=== PATIENT | male | born 1975 | race Caucasian/White ===

== ENCOUNTER 2017-04-07 08:35 | Outpatient (CLI) | payer OTHER | END 2017-04-07 08:36 | disposition home or self-care (01) | LOC: RT 08:35 | PROVIDERS: ATTEND General Practice | DX: R05 Cough (principal) | CPT/HCPCS: 94010 ==

== ENCOUNTER 2018-06-22 09:14 | Outpatient (CLI) | payer OTHER | END 2018-06-22 09:15 | disposition home or self-care (01) | LOC: SC 09:14 | PROVIDERS: ATTEND Internal Medicine Pulmonary Disease | DX: G47.33 Obstructive sleep apnea (adult) (pediatric) (principal) | CPT/HCPCS: 99203; 99212 ==

== ENCOUNTER 2018-12-22 17:02 | Emergency (ER) | payer OTHER ==
[2018-12-22 17:07] VITALS: BP 130/65
--- NOTE | 2018-12-22 17:18 | ED Physician Documentation ---
PD HPI UPPER EXT INJURY - Stated complaint Stated Complaint: LT WRIST INJ - Chief complaint Chief Complaint: Ext Problem - History obtained from History obtained from: Patient - History of Present Illness Location: Left, Forearm Type of injury: Fall Where injury occurred: Home Timing - onset: How many days ago (3) Timing - duration: Days (3) Timing - details: Abrupt onset, Still present Improved by: Rest, Immobilization Worsened by: Moving, Palpating Associated symptoms: Swelling. No: Weakness, Numbness, Tingling Contributing factors: No: Anticoagulated Similar symptoms before: Has not had sx before Recently seen: Not recently seen - Additonal information Additional information: 43-year-old male was replaced in the brakes on his truck when he was using a large tear bar in the vault gave way he fell onto an outstretched left hand. He complains of pain in the distal left radius and is able to have good range of motion of the wrist itself he has some improvement in the pain with immobilization with a Velcro splint. Review of Systems Constitutional: denies: Fever Ears: denies: Ear pain Nose: denies: Congestion Respiratory: denies: Cough GI: denies: Vomiting : denies: Dysuria Skin: denies: Rash Musculoskeletal: reports: Extremity pain, Joint pain. denies: Neck pain, Back pain Neurologic: denies: Generalized weakness, Focal weakness, Numbness PD PAST MEDICAL HISTORY - Past Medical History GI: GERD - Past Surgical History Past Surgical History: Yes - Present Medications Home Medications: Ambulatory Orders Medication Instructions Recorded Confirmed Montelukast [Singulair] 10 mg PO QPM 12/22/18 12/22/18 Sertraline [Zoloft] 25 mg PO DAILY 12/22/18 12/22/18 - Allergies Allergies/Adverse Reactions: Allergies Allergy/AdvReac Type Severity Reaction Status Date / Time No Known Drug Allergies Allergy Verified 12/22/18 17:07 - Social History Does the pt smoke?: No Smoking Status: Never smoker Does the pt drink ETOH?: Yes Does the pt have substance abuse?: No - Immunizations Immunizations are current?: Yes PD ED PE NORMAL - Vitals Vital signs reviewed: Yes (normal ) - General General: Alert and oriented X 3, No acute distress, Well developed/nourished - HEENT HEENT: Atraumatic, PERRL, EOMI - Respiratory Respiratory: No respiratory distress - Derm Derm: Normal color, Warm and dry, No rash - Extremities Extremities: No deformity, No edema, Other (There is no tenderness over the anatomic snuff box and the wrist is with full ROM without restriction. There is tenderness and swelling to the distal forearm over the distal 1/3 of the radias. distal n/v is intact. ) - Neuro Neuro: Alert and oriented X 3, manager of pmo 2-12 intact, No motor deficit, No sensory deficit, Normal speech Eye Opening: Spontaneous Motor: Obeys Commands Verbal: Oriented GCS Score: 15 - Psych Psych: Normal mood, Normal affect Results - Vitals Vitals: Vital Signs - 24 hr 12/22/18 17:05 Temperature 36.4 C L Heart Rate 61 Respiratory 18 Rate Blood Pressure 130/65 O2 Saturation 100 Oxygen O2 Source Room air - Rads (name of study) forearm left Radiology: Prelim report reviewed (Impression: Negative forearm radiography), EMP read indepedently, See rad report Procedures - Splint (location) wrist left Splint applied by: Tech Type of splint: Fiberglass, Volar cock up Other: Patient tolerated well, No complications, Neurovascular intact, Good alignment PD MEDICAL DECISION MAKING - ED course Complexity details: reviewed results, re-evaluated patient, considered differential, d/w patient ED course: 43 y/o male with a forearm injury from a FOOSH is placed into a volar splint. Departure - Departure Disposition: 01 Home, Self Care Clinical Impression: Left wrist sprain Qualifiers: Encounter type: initial encounter Qualified Code(s): S63.502A - Unspecified sprain of left wrist, initial encounter Condition: Stable Instructions: ED Sprain Wrist Follow-Up: GINGER SHEETS [Primary Care Provider] - Discharge Date/Time: 12/22/18 17:44
--- NOTE | 2018-12-22 17:40 | XRAY Report ---
Reason: FOOSH with distal 1/3 radius pain Procedure Date: 12/22/2018 Accession Number: [id number] / [id number] Procedure: XR - Forearm LT CPT Code: FULL RESULT: EXAM: LEFT FOREARM RADIOGRAPHY EXAM DATE: 12/22/2018 05:30 PM. CLINICAL HISTORY: FOOSH with distal 1/3 radius pain. COMPARISON: None. TECHNIQUE: 2 views. FINDINGS: Bones: Normal. No fractures or bone lesions. Joints: Normal. No effusions or subluxations in the visualized wrist or elbow joints. Soft Tissues: Normal. No soft tissue swelling. IMPRESSION: Negative forearm radiography. RADIA
== END 2018-12-22 17:44 | disposition home or self-care (01) ==
LOC: ED 17:02
DX: S63.502A Unspecified sprain of left wrist, initial encounter (principal); W18.30XA Fall on same level, unspecified, initial encounter
CPT/HCPCS: 29125; 99282

== ENCOUNTER 2019-02-07 16:49 | Emergency (ER) | payer OTHER ==
--- NOTE | 2019-02-07 17:16 | ED Physician Documentation ---
PD HPI UPPER EXT INJURY - Stated complaint Stated Complaint: RT SHOULDER PX - Chief complaint Chief Complaint: Ext Problem - History obtained from History obtained from: Patient - History of Present Illness Location: Right, Shoulder, Other (anterior chest) Type of injury: Blunt / blow (he was drilling with power tool and pushed hard on the tool, using his chest to press in. The rear of the drill was against chest wall. Patient felt a pop and has had pain at right anterior chest wall, below medial clavicle area focally. No further popping nor clicking.) Where injury occurred: Home Timing - onset: How many days ago (several) Timing - duration: Days (several) Timing - details: Abrupt onset, Still present, Waxing and waning Improved by: Rest Worsened by: Moving (right shoulder movement hurts at the pectoral/anterior chest area.), Palpating Associated symptoms: No: Weakness, Numbness, Swelling Similar symptoms before: Has not had sx before Recently seen: Not recently seen Review of Systems Throat: denies: Sore throat Cardiac: denies: Palpitations Respiratory: denies: Dyspnea, Cough GI: denies: Abdominal Pain, Nausea, Vomiting Skin: denies: Rash, Lesions PD PAST MEDICAL HISTORY - Past Medical History Cardiovascular: None Respiratory: None Neuro: None Endocrine/Autoimmune: None GI: GERD HEENT: Other (allergies) - Past Surgical History Past Surgical History: Yes - Present Medications Home Medications: Ambulatory Orders Medication Instructions Recorded Confirmed Montelukast [Singulair] 10 mg PO QPM 12/22/18 12/22/18 Sertraline [Zoloft] 25 mg PO DAILY 12/22/18 12/22/18 Hydrocodone/Acetaminophen [[place] 1 each PO Q6H PRN #20 tablet 02/07/19 5-325 Tablet] - Allergies Allergies/Adverse Reactions: Allergies Allergy/AdvReac Type Severity Reaction Status Date / Time No Known Drug Allergies Allergy Verified 02/07/19 16:52 - Social History Does the pt smoke?: No Smoking Status: Never smoker Does the pt drink ETOH?: Yes Does the pt have substance abuse?: No - Immunizations Immunizations are current?: Yes PD ED PE NORMAL - Vitals Vital signs reviewed: Yes - General General: Alert and oriented X 3, No acute distress, Well developed/nourished - Neck Neck: Supple, no meningeal sign, No adenopathy - Cardiac Cardiac: RRR, No murmur - Respiratory Respiratory: Clear bilaterally, Other (local chestwall tenderness at right lateral chest costchondral junction at level of 3rd/4th rib, without crepitance. ) Results - Vitals Vitals: Oxygen O2 Source Room air - Rads (name of study) right shoulder Radiology: Prelim report reviewed, EMP read contemporaneously (shoulder film done via nursing triage. It does show the anterior ribs and upper lung field for that area adequately to see no gross deformity. ), See rad report PD MEDICAL DECISION MAKING - ED course Complexity details: reviewed results, considered differential, d/w patient Departure - Departure Disposition: Home, Self Care Clinical Impression: Costochondral joint sprain Qualifiers: Encounter type: initial encounter Qualified Code(s): S23.41XA - Sprain of ribs, initial encounter Condition: Stable Record reviewed to determine appropriate education?: Yes Instructions: ED Chest Pain Costochondritis Follow-Up: [facility] SHE[facility] [Primary Care Provider] - Prescriptions: Hydrocodone/Acetaminophen [[place] 5-325 Tablet] 1 each PO Q6H PRN #20 tablet PRN Reason: Pain Comments: The x-ray appears normal in that area so no obvious rib fractures. There could be a small hairline fracture though in that location be more likely a inflammation or slight separation of the cartilage junction between the rib and the sternum. Continue some anti-inflammatories such as ibuprofen or naproxen 2- 3 times daily. Add Tylenol or hydrocodone if needed for pain. I would an ticipate steady improvement over a week to 2 weeks at most. Discharge Date/Time: 02/07/19 18:17
--- NOTE | 2019-02-07 17:56 | XRAY Report ---
Reason: R shoulder inj Procedure Date: 02/07/2019 Accession Number: [id number] / [id number] Procedure: XR - Shoulder 3 View RT CPT Code: FULL RESULT: EXAM: RIGHT SHOULDER RADIOGRAPHY EXAM DATE: 02/07/2019 05:35 PM. CLINICAL HISTORY: Right shoulder injury. Pain just to the right of sternum approximately a third or fourth rib sharp stabbing pain with cough. COMPARISON: None. TECHNIQUE: 3 views. FINDINGS: Bones: Normal. No fracture or bone lesion. Joints: Mild acromioclavicular degenerative joint disease with osteophytes. No subluxation. Soft tissues: The visualized hemithorax is unremarkable. No soft tissue swelling. IMPRESSION: Mild acromioclavicular degenerative joint disease. No acute fracture or dislocation. RADIA
[2019-02-07] MEDS ORDERED: HYDROcod/ACETAM 5/325 MG TABLET PO STA (18:06)
[2019-02-07 18:13] VITALS: BP 119/77
== END 2019-02-07 18:17 | disposition home or self-care (01) ==
LOC: ED 16:49
DX: S23.41XA Sprain of ribs, initial encounter (principal); M25.511 Pain in right shoulder; X50.9XXA Other and unspecified overexertion or strenuous movements or postures, initial encounter; W29.8XXA Contact with other powered hand tools and household machinery, initial encounter; Y93.89 Activity, other specified; Y92.009 Unspecified place in unspecified non-institutional (private) residence as the place of occurrence of the external cause
CPT/HCPCS: 73030; 99283; A9270

== ENCOUNTER 2019-03-02 00:05 | Emergency (ER) | payer OTHER ==
--- NOTE | 2019-03-02 00:36 | ED Physician Documentation ---
PD HPI SYNCOPE - Stated complaint Stated Complaint: SYNCOPE/NOSE PX - Chief complaint Chief Complaint: Neuro - History obtained from History obtained from: Patient - History of Present Illness Witnessed: Unwitnessed Timing - onset: Today Duration: Unknown Preceding symptoms: Diaphoresis, Light headed. No: Nausea / vomiting Associated symptoms: Diaphoresis. No: Incontinant of urine, Incontinant of stool, Headache, Palpitations, Nausea / vomiting Contributing factors: Other (Is having some abdominal discomfort because he needed to have a bowel movement. He had some mild diarrhea.) Injury occurred: Fell. No: Bit tongue Similar symptoms before: Diagnosis (Vasovagal syncope) Recently seen: Not recently seen - Additional information Additional information: Is a 43-year-old man who presents with his complaints that he got up at night feeling like he needed to go to the bathroom. He did eaten a pizza that he thinks was not settling well. As soon as he sat down on the toilet he started to get lightheaded and really sweaty and next thing he knew he woke up on his right side on the floor in front of the toilet. He thought he had vomited he got up and looked at turn on the light and realized that it was a puddle of blood. He still needed to have a bowel movement so he sat on the toilet had some diarrhea and then woke his up. He does not know how long he was out in the bathroom but there was quite a puddle of blood and it was kind of congealed by the time the got in there so he thinks he may have been out a couple of minutes. He is complaining that his nose hurts. The bleeding was definitely coming from inside the nose he was spitting it out of his mouth. He is also complaining of neck pain to the right side. Does not have a headache or feel dizzy now. He had no vomiting. No bowel or bladder incontinence. He says that he had a very busy day to day and is very active and probably did not drink enough water. He does have a history of passing out in the past at least 2 other times. 1 of those times he was diagnosed with vasovagal syncope. 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 Review of Systems Constitutional: denies: Fever Cardiac: denies: Chest pain / pressure, Palpitations, Pedal edema Respiratory: denies: Dyspnea, Cough GI: reports: Diarrhea. denies: Abdominal Pain, Nausea, Vomiting : denies: Dysuria, Frequency Skin: denies: Rash Musculoskeletal: reports: Neck pain. denies: Back pain, Extremity pain, Joint pain Neurologic: reports: Syncope. denies: Generalized weakness, Focal weakness, Numbness, Difficulty speaking, Seizure, Confused, Altered mental status, Headache Endocrine: reports: Other (He is not diabetic.) PD PAST MEDICAL HISTORY - Past Medical History Cardiovascular: None Respiratory: None Neuro: Fainting Endocrine/Autoimmune: None GI: GERD : None HEENT: Other (allergies) Psych: Anxiety Musculoskeletal: None Derm: None - Past Surgical History Past Surgical History: Yes - Present Medications Home Medications: Ambulatory Orders Medication Instructions Recorded Confirmed Montelukast [Singulair] 10 mg PO QPM 12/22/18 03/02/19 Sertraline [Zoloft] 25 mg PO DAILY 12/22/18 03/02/19 - Allergies Allergies/Adverse Reactions: Allergies Allergy/AdvReac Type Severity Reaction Status Date / Time No Known Drug Allergies Allergy Verified 03/02/19 00:14 - Social History Does the pt smoke?: No Smoking Status: Never smoker Does the pt drink ETOH?: Yes Does the pt have substance abuse?: No - Immunizations Immunizations are current?: Yes - POLST Patient has POLST: No PD ED PE NORMAL - Vitals Vital signs reviewed: Yes (Thin pleasant 43-year-old man.) - General General: Alert and oriented X 3, No acute distress, Well developed/nourished - HEENT HEENT: PERRL, EOMI, Ears normal, Moist mucous membranes, Other (There is a small less than half centimeter laceration to the right side of the nose where his glasses sit. The nose is quite swollen and tender across the bridge of it. There is dried blood in the nostrils but no septal hematoma. No blood in the posterior pharynx. There is a small abrasion to the left side of his tongue. Pupils are equal round reactive to light and extraocular muscles are intact. There is no hemotympanum.) - Neck Neck: Other (He does have pain with palpation to the right of the cervical midline about C4.) - Cardiac Cardiac: RRR, No murmur - Respiratory Respiratory: No respiratory distress, Clear bilaterally - Abdomen Abdomen: Normal bowel sounds, Soft, Non tender, Non distended, No organomegaly - Derm Derm: Normal color, Warm and dry, Other (Small laceration to the bridge of the nose as noted above.) - Extremities Extremities: No deformity, Normal ROM s pain, No edema - Neuro Neuro: Alert and oriented X 3, shake cutter 2-12 intact, No motor deficit, No sensory deficit, Normal speech Eye Opening: Spontaneous Motor: Obeys Commands Verbal: Oriented GCS Score: 15 - Psych Psych: Normal mood, Normal affect Results - Vitals Vitals: Vital Signs - 24 hr 03/02/19 03/02/19 00:11 01:35 Temperature 36.4 C L Heart Rate 62 67 Respiratory 15 16 Rate Blood Pressure 121/81 H 138/81 H O2 Saturation 97 97 Oxygen O2 Source Room air - EKG (time done) 0019 Rate: Rate (enter#) Rhythm: Sinus bradycardia Intervals: Prolonged LA. No: Prolonged QT, Wide QRS QRS: Normal Compare to prior EKG: Old EKG unavailable - Labs Labs: Laboratory Tests 03/02/19 03/02/19 03/02/19 00:42 00:47 00:47 WBC 7.5 RBC 4.38 L Hgb 13.4 L Hct 38.5 L MCV 87.9 MCH 30.6 MCHC 34.8 RDW 13.0 Plt Count 228 MPV 7.1 L Neut # (Auto) 4.3 Lymph # (Auto) 2.3 Leon # (Auto) 0.6 Eos # (Auto) 0.4 Baso # (Auto) 0.0 Absolute Nucleated RBC 0.01 Nucleated RBC % 0.1 Sodium 141 Potassium 3.5 Chloride 104 Carbon Dioxide 26 Anion Gap 11.0 BUN 18 Creatinine 0.8 Estimated GFR (MDRD) 106 Glucose 92 POC Whole Bld Glucose 88 Calcium 8.7 Total Bilirubin 1.1 H AST 32 ALT 20 Alkaline Phosphatase 62 Troponin I Total Protein 6.6 L Albumin 3.9 Globulin 2.7 Albumin/Globulin Ratio 1.4 Lipase 38 Ethyl Alcohol < 5.0 03/02/19 00:47 WBC RBC Hgb Hct MCV MCH MCHC RDW Plt Count MPV Neut # (Auto) Lymph # (Auto) Leon # (Auto) Eos # (Auto) Baso # (Auto) Absolute Nucleated RBC Nucleated RBC % Sodium Potassium Chloride Carbon Dioxide Anion Gap BUN Creatinine Estimated GFR (MDRD) Glucose POC Whole Bld Glucose Calcium Total Bilirubin AST ALT Alkaline Phosphatase Troponin I < 0.04 Total Protein Albumin Globulin Albumin/Globulin Ratio Lipase Ethyl Alcohol PD MEDICAL DECISION MAKING - ED course Complexity details: d/w patient, d/w family ED course: Patient's EKG was a sinus rhythm without ischemic changes or dysrhythmia. The cervical spine CT showed some spondylosis at C5-6 but no fracture. He was slightly anemic but not significant enough to cause syncope. His chemistries were normal. Did not image his nose. Clinically he has a fracture and I felt that imaging would be of limited value. He was comfortable with that. There is no septal hematoma. The laceration on the bridge of his nose is very small and not anything that needs sutured. Patient does wear a CPAP machine and we discussed that that may be difficult for him for the next couple of days. Referred him back to his primary care provider for follow-up and further evaluation as they feel is warranted. Departure - Departure Disposition: 01 Home, Self Care Clinical Impression: Syncope Qualifiers: Syncope type: unspecified Qualified Code(s): R55 - Syncope and collapse Nasal fracture Qualifiers: Encounter type: initial encounter Fracture type: open Qualified Code(s): S02.2XXB - Fracture of nasal bones, initial encounter for open fracture Laceration of nose Qualifiers: Encounter type: initial encounter Qualified Code(s): S01.21XA - Laceration without foreign body of nose, initial encounter Condition: Good Instructions: ED Head Injury Closed, ED Syncope Vasovagal, ED Fx Nose No X Ray Follow-Up: CAMACHO Rosario [Provider Group] Comments: Keep the wound on your nose clean and dry. May cover with a little bit of antibiotic ointment. I would put a Band-Aid on this if you can wear your CPAP machine. Schedule a follow-up appointment with your primary care provider to see if they feel any further work-up is warranted at this time. Return to the emergency department if any problems arise.
[2019-03-02] MEDS ORDERED: SODIUM CHLORIDE 0.9% 1,000 ML IV ONE (00:38)
[2019-03-02 01:01] LABS: BASOPHILS % (AUTO) 0.6 %; EOSINOPHILS # (AUTO) 0.4 10^3/uL (0.0-0.7); HGB - HEMOGLOBIN 13.4 g/dL (14.0-18.0); LYMPHOCYTES # (AUTO) 2.3 10^3/uL (1.5-3.5); LYMPHOCYTES % (AUTO) 29.9 %; MEAN CORPUSCULAR HEMOGLOBIN 30.6 pg (27.0-31.0); MEAN CORPUSCULAR HGB CONC 34.8 g/dL (32.0-36.0); MEAN CORPUSCULAR VOLUME 87.9 fL (80.0-94.0); MEAN PLATELET VOLUME 7.1 fL (7.4-11.4); MONOCYTES # (AUTO) 0.6 10^3/uL (0.0-1.0); NEUTROPHILS # (AUTO) 4.3 10^3/uL (1.5-6.6); NEUTROPHILS % (AUTO) 56.5 %; PLT - PLATELET COUNT 228 10^3/uL (130-450); RED BLOOD COUNT 4.38 10^6/uL (4.70-6.10); WHITE BLOOD COUNT 7.5 x10^3/uL (4.8-10.8)
[2019-03-02 01:26] LABS: ALBUMIN 3.9 g/dL (3.2-5.5); ALBUMIN/GLOBULIN RATIO 1.4 (1.0-2.2); ALKALINE PHOSPHATASE 62 IU/L (42-121); ALT ALANINE AMINOTRANSFERASE 20 IU/L (10-60); AST ASPARTATE AMINOTRANSFERASE 32 IU/L (10-42); BILIRUBIN,TOTAL 1.1 mg/dL (0.2-1.0); BUN - BLOOD UREA NITROGEN 18 mg/dL (6-20); CALCIUM 8.7 mg/dL (8.5-10.3); CARBON DIOXIDE - CO2 26 mmol/L (21-32); CHLORIDE 104 mmol/L (101-111); CREATININE 0.8 mg/dL (0.6-1.2); GFR - MDRD 106 (>89); GLUCOSE 92 mg/dL (70-100); LIPASE 38 U/L (22-51); SODIUM 141 mmol/L (135-145); TOTAL PROTEIN 6.6 g/dL (6.7-8.2)
--- NOTE | 2019-03-02 01:44 | CT Report ---
Reason: neck pain; trauma Procedure Date: 03/02/2019 Accession Number: [id number] / [id number] Procedure: CT - CERVICAL SPINE WO CPT Code: FULL RESULT: EXAM: CT CERVICAL SPINE WITHOUT CONTRAST DATE: 03/02/2019 01:23 AM. HISTORY: Neck pain; trauma. COMPARISONS: None. TECHNIQUE: Thin-section axial images were acquired of the cervical spine without contrast. Post-processing: Coronal and sagittal reformats. Other: None. In accordance with CT protocol optimization, one or more of the following dose reduction techniques were utilized for this exam: automated exposure control, adjustment of mA and/or KV based on patient size, or use of iterative reconstructive technique. FINDINGS: Alignment: No scoliosis or spondylolisthesis. Bones: No fracture or bone lesion. Interspace Levels/Facets: C1-C2: Unremarkable. C2-C3: Unremarkable. C3-C4: Unremarkable. C4-C5: Unremarkable. C5-C6: Moderate disk narrowing. Posterior endplate spurring and disk bulging mildly narrows the central canal. Uncovertebral and facet hypertrophy contributes to mild to moderate bilateral neural foramen stenosis. This is slightly greater on the left. C6-C7: Unremarkable. C7-T1: Unremarkable. Musculature: Normal. No fatty atrophy. Other: The paravertebral and prevertebral soft tissues are unremarkable. The lung apices are clear. IMPRESSION: 1. No acute osseous abnormality of cervical spine. No fracture or subluxation. 2. At C5-C6, spondylosis is associated with a mild degree of central canal stenosis and [id number] bilateral neural foramen stenosis. RADIA
[2019-03-02 02:12] VITALS: BP 137/90
== END 2019-03-02 02:15 | disposition home or self-care (01) ==
LOC: ED 00:05
DX: R55 Syncope and collapse (principal); S02.2XXB Fracture of nasal bones, initial encounter for open fracture; S00.512A Abrasion of oral cavity, initial encounter; W18.11XA Fall from or off toilet without subsequent striking against object, initial encounter; Y93.89 Activity, other specified; Y92.002 Bathroom of unspecified non-institutional (private) residence as the place of occurrence of the external cause; M47.812 Spondylosis without myelopathy or radiculopathy, cervical region; M48.02 Spinal stenosis, cervical region; R00.1 Bradycardia, unspecified; I44.0 Atrioventricular block, first degree; D64.9 Anemia, unspecified
CPT/HCPCS: 36415; 72125; 80053; 80320; 83690; 84484; 85025; 93005; 96360; 99284

== ENCOUNTER 2019-06-21 10:53 | Outpatient (CLI) | payer OTHER ==
--- NOTE | 2019-06-21 11:38 | SLEEP CARE CONSULTATION ---
Information from patient questionnaire entered by Mery Ashraf. I have reviewed and concur with the information entered by Mery Ashraf. This document represents the service I personally performed and the decisions made by me, Nohemy Lopez MD, [facility]. History of Present Illness Previous diagnosis: Mild, Obstructive Sleep Apnea-Hypopnea Syndrome AHI: 13.1 Reason for CPAP/BiPAP follow up: annual Equipment type: CPAP Equipment obtained from: [facility] Mask style: Full face (and Nasal Pillows) Prior sleep studies: Yes Year and Where: 2016 [facility] HPI additional information: HPI: Mr. Bowen returned today for annual follow up of nasal CPAP therapy. He was diagnosed to have mild obstructive sleep apnea-hypopnea syndrome (AHI was 13.[address] [facility] in January of 2017). The patient wears a Respironics DreamWear nasal cushion mask. He was wear a ResMed AirTouch F-20 full face mask but he could not get the replacement cushion because [facility] is now out of [employer] network. He reports using the device nightly and all through the night. The compliance report shows usage in 29 nights out of the past 30 nights, averaging 5.9 hours a night. He complained of no particular problem with the device such as soreness on the face, dry nose, epistaxis, nasal congestion or headache. He thinks that the pressure of 5 11 cmH2O is comfortable. On the CPAP therapy he notices improvement in his sleep quality, and that he wakes up feeling fresher in the morning and more awake/alert during the day. His notices no snore at all. The average residual AHI is 6.3; and air leak, 8.9 L/min. Both the residual AHI and air leak values went up after he switched from the full face mask to Respironics DreamWear nasal cushion mask. The 90th percentile pressure is 10.5 cmH2O. CPAP Compliance Data - Data Reviewed with Patient Average duration of nightly device use: 5h 54m Compliance rate %: 90 Current pressure setting (cmH2O): 5-11 Subjective Patient concerns: reports: aerophagia, mask discomfort, dry mouth, nose, throat Initial [place] Sleepiness Scale score: 18 Current [place] Sleepiness Scale score: 11 Allergies and Home Medications Drug allergies reviewed: Yes Home medication list reviewed: Yes Review of Systems Review of systems same as previous: Yes Physical Exam Weight: 203 lb Impression and Plan IMPRESSION: 1. Obstructive Sleep Apnea-Hypopnea Syndrome, mild, with the patient doing well on nasal CPAP therapy. He has excellent compliance and significant clinical improvement. The current pressure appears effective and comfortable. Overall, he is very satisfied with treatment and plans to continue with it long-term. The increase in residual AHI is most likely from mouth air leak when the patient uses the Respironics DreamWear nasal cushion mask. PLAN: 1. Continue with autoCPAP set 5 - 11 cmH2O. 2. Prescription made for supplies so that the patient may switch durable medical supplier. 3. Try Respironics DreamWear full face mask. 4. Return in one year for follow up or earlier if there is any problem with the treatment. I spent 100% of this 20 minute visit face to face with the patient with greater than 50% of this was spent time counseling the patient and coordination of care.
== END 2019-06-21 10:54 | disposition home or self-care (01) ==
LOC: SC 10:53
PROVIDERS: ATTEND Internal Medicine Pulmonary Disease
DX: G47.33 Obstructive sleep apnea (adult) (pediatric) (principal)
CPT/HCPCS: 99212; 99213